=== PATIENT | female | born 1980 | race Asian ===

== ENCOUNTER → 2019-05-18 | Outpatient (CLI) | payer BC ==
[2019-05-18 08:50] LABS: HEMATOCRIT 41.4 % (36.0-47.0); HEMOGLOBIN 13.9 g/dl (12.0-15.5); MEAN CORPUSCULAR HGB CONC 33.6 g/dl (32.0-36.5); MEAN CORPUSCULAR VOLUME 89.2 fl (80.0-96.0); PLATELET COUNT, AUTOMATED 224 10^3/uL (150-450); RED BLOOD COUNT 4.64 10^6/uL (4.00-5.40); WHITE BLOOD COUNT 6.8 10^3/uL (4.0-10.0)
[2019-05-18 09:17] LABS: ALBUMIN 3.9 GM/DL (3.2-5.2); ALT/SGPT 29 U/L (12-78); BILIRUBIN,TOTAL 0.5 MG/DL (0.2-1.0); BLOOD UREA NITROGEN 13 MG/DL (7-18); CALCIUM LEVEL 9.1 MG/DL (8.5-10.1); CARBON DIOXIDE LEVEL 29 MEQ/L (21-32); CHLORIDE LEVEL 108 MEQ/L (98-107); CHOLESTEROL LEVEL 234 MG/DL (<200); CHOLESTEROL RISK RATIO 3.714 (<5); GLOMERULAR FILTRATION RATE > 60.0 (>60); GLUCOSE, FASTING 82 MG/DL (70-100); HDL CHOLESTEROL 63 MG/DL (>40); LDL CHOLESTEROL 144 MG/DL (<100); NON-HDL-C 171 MG/DL; POTASSIUM SERUM 4.4 MEQ/L (3.5-5.1); RHEUMATOID FACTOR QUANT < 10.0 IU/ML (<15.0); SODIUM LEVEL 141 MEQ/L (136-145); TOTAL PROTEIN 7.5 GM/DL (6.4-8.2); TRIGLYCERIDES LEVEL 136 MG/DL (<150)
[2019-05-18 09:31] LABS: ERYTHROCYTE SEDIMENTATION RATE 22 mm/hr (0-20)
[2019-05-18 10:21] LABS: HEMOGLOBIN A1c 4.9 %
[2019-05-18 11:19] LABS: CHLAMYDIA DNA AMPLIFICATION NEGATIVE (NEGATIVE); GC DNA AMPLIFICATION NEGATIVE (NEGATIVE)
[2019-05-20 00:08] LABS: ANTI DOUBLE STRAND-DNA AB 8 IU/mL (0-9); ANTINUCLEAR ANTIBODIES DIRECT Positive (Negative); RNP ANTIBODIES 1.2 AI (0.0-0.9); SJOGREN'S ANTI SS-A <0.2 AI (0.0-0.9); SJOGREN'S ANTI SS-B <0.2 AI (0.0-0.9); SMITH ANTIBODIES <0.2 AI (0.0-0.9); TISSUE TRANSGLUTAMINASE IgA <2 U/mL (0-3)
[2019-05-26 06:40] LABS: HIV-1 RNA by PCR <20 copies/mL (NORMAL)
== END ==
LOC: M LAB 07:48
PROVIDERS: ATTEND Internal Medicine
DX: Z00.01 Encounter for general adult medical examination with abnormal findings (principal)

== ENCOUNTER → 2019-08-16 | Outpatient (CLI) | payer BC ==
--- NOTE | 2019-08-16 07:42 | PFTRPT ---
Site: [facility], [address] [place] [address], [id number] ID: [id number] Name: ROCKY SANTOS Visit Date: 08/16/2019 Second ID: [id number] Referring Doctor: Handy Bryson PA-C Reviewing Doctor: Jamie Garner MD Night Shift Supervisor: Angie NOLEN RRT Age: 38 : 1980 Sex: Female Race: <Unspecified> Height: 63.75 Inches Weight: 149.00 Lbs BSA: 1.72 Order IDs: [id number] Requested Test(s): <RESP-PFT.DLCO> Diagnosis: M34.1 test meet the ATS standards for acceptability and repeatability. Pt was given four puffs of albuterol for postbronchodilator. Review Status: Not Reviewed Pre-Bronch Post-Bronch Pred Actual %Pred Actual %Chng SPIROMETRY FVC (L) 3.67 3.39 92 3.42 FEV1 (L) 2.99 2.65 88 2.84 7 FEV1/FVC (%) 82 78 95 83 6 FEF 25% (L/sec) 5.43 5.03 92 5.66 12 FEF 50% (L/sec) 4.21 3.42 81 3.66 6 FEF 75% (L/sec) 1.67 0.88 52 1.47 67 FEF 25-75% (L/sec) 3.12 2.38 76 3.03 27 FEF Max (L/sec) 6.93 5.15 74 6.02 16 FIVC (L) 3.40 3.39 FIF 50% (L/sec) 3.82 5.06 132 4.46 -11 FIF Max (L/sec) 5.12 4.75 -7 MVV (L/min) 102 81 79 Expiratory Time (sec) 6.86 6.63 -3 Back Extrap Vol (L) 0.08 0.10 24 Time To FEFmax (sec) 0.112 0.093 -17 LUNG VOLUMES SVC (L) 3.45 3.30 95 IC (L) 2.25 2.42 107 ERV (L) 1.20 0.89 73 TGV (L) 2.77 2.63 95 RV (Pleth) (L) 1.57 1.75 111 TLC (Pleth) (L) 5.02 5.05 100 RV/TLC (Pleth) (%) 31 35 111 DIFFUSION DLCOunc (ml/min/mmHg) 23.75 24.77 104 DLCOcor (ml/min/mmHg) 23.75 25.24 106 DL/VA (ml/min/mmHg/L) 4.73 5.53 116 VA (L) 5.02 4.56 90 BHT (sec) 9.66 IVC (L) 3.22 TLC (SB) (L) 4.71 AIRWAYS RESISTANCE Raw (cmH2O/L/s) 1.86 0.81 43 Gaw (L/s/cmH2O) 1.03 1.24 120 sRaw (cmH2O*s) 4.76 2.18 45 sGaw (1/cmH2O*s) 0.20 0.46 231 BLOOD GASES Hgb (gm/dL) 12.8
== END ==
LOC: M CARPUL 07:00
PROVIDERS: ATTEND Physician Assistant
DX: M34.1 CR(E)ST syndrome (principal); R06.02 Shortness of breath

== ENCOUNTER 2019-11-26 07:02 | Day surgery (SDC) | payer BC ==
[~2019-11-26] VITALS: Ht 162.6 cm; Wt 68.0 kg
[~2019-11-26 07:02] MED LIST: 5-HT1CAP PO; CULTCAP2 PO; ESCI5SOL3 PO; GABA-845 PO; HM A10TA PO; NS 1,000 ML IV ONE; VITA500079 PO; VITABCTA PO
[2019-11-26] MEDS ORDERED: LIDOCAINE 2% INJ 100 MG/5 ML SDV (FOR ANES.) As Ordered ONE (07:58)
[2019-11-26] MEDS ORDERED: propofoL 500 MG/50 ML VIAL As Ordered ONE (07:58)
--- NOTE | 2019-11-26 08:19 | ROOR ---
Patient Name: Laurita Alvarez Procedure Date: 11/26/2019 7:57 AM Date of : 1980 Age: 39 Room: [facility] Gender: Female Note Status: Finalized Procedure: Colonoscopy Indications: Generalized abdominal pain, Change in bowel habits, Constipation Providers: Jason GARCIA MD Referring MD: Angela WEISS MD Requesting Provider: Medicines: Monitored Anesthesia Care Complications: No immediate complications. Procedure: Pre-Anesthesia Assessment: - The heart rate, respiratory rate, oxygen saturations, blood pressure, adequacy of pulmonary ventilation, and response to care were monitored throughout the procedure. The Colonoscope was introduced through the anus and advanced to 10 cm into the ileum. The colonoscopy was performed without difficulty. The patient tolerated the procedure well. The quality of the bowel preparation was good. Findings: The perianal and digital rectal examinations were normal. There was evidence of a prior functional end-to-end ileo-colonic anastomosis at the hepatic flexure. This was patent and was characterized by healthy appearing mucosa. The anastomosis was traversed. No other significant abnormalities were identified in a careful examination of the remainder of the colon. The italo-terminal ileum appeared normal. Small Internal Hemorrhoids. Impression: - Patent functional end-to-end ileo-colonic anastomosis, characterized by healthy appearing mucosa. - The colon is otherwise normal. - The examined portion of the ileum was normal. - Small Internal Hemorrhoids. - No specimens collected. Recommendation: - Use fiber, for example Citrucel, Fibercon, Konsyl or Metamucil. - Continue present medications. - Return to referring physician as previously scheduled. Jason Garcia MD Jason GARCIA MD 11/26/2019 8:18:39 AM Electronically signed by Jason GARCIA MD Number of Addenda: 0 Note Initiated On: 11/26/2019 7:57 AM Estimated Blood Loss: Estimated blood loss: none.
[2019-11-26 08:50] VITALS: BP 103/64
== END 2019-11-26 08:50 | disposition home or self-care (01) ==
LOC: M OPP 07:02
PROVIDERS: ATTEND Internal Medicine Gastroenterology
DX: K64.8 Other hemorrhoids (principal); Z98.0 Intestinal bypass and anastomosis status; R10.84 Generalized abdominal pain; R19.4 Change in bowel habit; Z79.899 Other long term (current) drug therapy; Z88.0 Allergy status to penicillin; Z88.8 Allergy status to other drugs, medicaments and biological substances; Z91.018 Allergy to other foods; Z80.0 Family history of malignant neoplasm of digestive organs

== ENCOUNTER → 2020-04-25 | Outpatient (CLI) | payer BC ==
[~2020-04-25] MED LIST changes: -NS 1,000 ML IV ONE
--- NOTE | 2020-04-25 23:13 | ECGEPIP ---
[facility] Test Date: 2020-04-25 Pat Name: ROCKY SANTOS Department: Room: - Gender: Female Information Technology Associate: [place] : 1980 Requested By: Jose Luis San Order Number: [id number] Reading MD: Jason Rawls Measurements Intervals [place] Rate: 65 P: 68 MN: 165 QRS: 40 QRSD: 101 T: 9 QT: 408 QTc: 425 Interpretive Statements SINUS RHYTHM INCOMPLETE RIGHT BUNDLE BRANCH BLOCK No prior ECG available for comparison at the time of interpretation. Electronically Signed on 04-25-2020 23:13:08 EDT by Jason Rawls
== END ==
LOC: M EKG 13:49
PROVIDERS: ATTEND Internal Medicine
DX: M32.9 Systemic lupus erythematosus, unspecified (principal); Z79.899 Other long term (current) drug therapy

== ENCOUNTER → 2020-06-08 | Outpatient (CLI) | payer BC ==
[2020-06-08 12:36] LABS: BASO % 0.5 % (0.0-1.0); EOS # 0.1 10^3/uL (0.0-0.5); EOS % 1.6 % (0.0-3.0); HEMATOCRIT 39.6 % (36.0-47.0); HEMOGLOBIN 13.4 g/dl (12.0-15.5); LYMPH # 1.9 10^3/uL (1.5-5.0); LYMPH % 22.9 % (24.0-44.0); MEAN CORPUSCULAR HEMOGLOBIN 30.2 pg (27.0-33.0); MEAN CORPUSCULAR HGB CONC 33.8 g/dl (32.0-36.5); MEAN CORPUSCULAR VOLUME 89.2 fl (80.0-96.0); MONO # 0.5 10^3/uL (0.0-0.8); MONO % 6.5 % (0.0-5.0); NEUTROPHILS # 5.6 10^3/uL (1.5-8.5); NEUTROPHILS % 68.1 % (36.0-66.0); PLATELET COUNT, AUTOMATED 222 10^3/uL (150-450); RED BLOOD COUNT 4.44 10^6/uL (4.00-5.40); WHITE BLOOD COUNT 8.3 10^3/uL (4.0-10.0)
[2020-06-08 12:39] LABS: APPEARANCE, URINE CLEAR (CLEAR); BACTERIA, URINE AUTO 1+ (NEGATIVE); BILIRUBIN, URINE AUTO NEGATIVE (NEGATIVE); BLOOD, URINE BLOOD NEGATIVE (NEGATIVE); COLOR, URINE COLORLESS (YELLOW); GLUCOSE, URINE (UA) AUTO NEGATIVE (NEGATIVE); KETONE, URINE AUTO NEGATIVE (NEGATIVE); LEUKOCYTE ESTERASE, URINE AUTO NEGATIVE (NEGATIVE); NITRITE, URINE AUTO NEGATIVE (NEGATIVE); PROTEIN, URINE AUTO NEGATIVE (NEGATIVE); RBC, URINE AUTO 1 /HPF (0-3); SPECIFIC GRAVITY URINE AUTO 1.002 (1.002-1.035); SQUAMOUS EPITHELIAL CELL UR AU 1 /HPF (0-6); UROBILINOGEN, URINE AUTO 0.2 mg/dL (0.0-2.0); WBC, URINE AUTO 1 /HPF (0-3)
[2020-06-08 13:05] LABS: ALBUMIN 3.7 GM/DL (3.2-5.2); ALT/SGPT 26 U/L (12-78); BILIRUBIN,TOTAL 0.3 MG/DL (0.2-1.0); BLOOD UREA NITROGEN 12 MG/DL (7-18); CALCIUM LEVEL 9.2 MG/DL (8.5-10.1); CARBON DIOXIDE LEVEL 30 MEQ/L (21-32); CHLORIDE LEVEL 104 MEQ/L (98-107); CREATININE FOR GFR 0.73 MG/DL (0.55-1.30); GLOMERULAR FILTRATION RATE > 60.0 (>58); GLUCOSE, FASTING 81 MG/DL (70-100); POTASSIUM SERUM 3.9 MEQ/L (3.5-5.1); SODIUM LEVEL 140 MEQ/L (136-145); TOTAL PROTEIN 7.4 GM/DL (6.4-8.2); URIC ACID 4.8 MG/DL (2.6-6.0)
[2020-06-08 13:08] LABS: CREATININE,RANDOM URINE < 13.0 MG/DL; TOTAL PROTEIN,RANDOM URINE 6.2 MG/DL (0.0-12.0)
[2020-06-10 01:07] LABS: BETA-2 GLYCOPROTEIN I ABY IGA <9 (0-25); BETA-2 GLYCOPROTEIN I ABY IGG <9 (0-20); BETA-2 GLYCOPROTEIN I ABY IGM <9 (0-32); CARDIOLIPIN IGA ANTIBODY <9 APL U/mL (0-11); CARDIOLIPIN IGG ANTIBODY <9 GPL U/mL (0-14); CARDIOLIPIN IGM ANTIBODY 26 MPL U/mL (0-12); SSA SJOGRENS A <0.2 AI (0.0-0.9); SSB SJOGRENS B <0.2 AI (0.0-0.9)
[2020-06-20 11:57] LABS: DRVV SCREEN 35.4 SEC
[2020-06-20 12:07] LABS: PTT LUPUS TYPE ANTICOAG SCREEN 0.9 (0-1.2)
== END ==
LOC: M LAB 11:56
PROVIDERS: ATTEND Internal Medicine
DX: M32.9 Systemic lupus erythematosus, unspecified (principal)

== ENCOUNTER → 2020-07-05 | Outpatient (CLI) | payer BC ==
[2020-07-05 11:20] LABS: AMORPHOUS SEDIMENT SMALL (NEGATIVE); APPEARANCE, URINE CLEAR (CLEAR); BACTERIA, URINE AUTO 2+ (NEGATIVE); BASO % 0.4 % (0.0-1.0); BILIRUBIN, URINE AUTO NEGATIVE (NEGATIVE); BLOOD, URINE BLOOD NEGATIVE (NEGATIVE); COLOR, URINE STRAW (YELLOW); EOS # 0.1 10^3/uL (0.0-0.5); EOS % 1.7 % (0.0-3.0); GLUCOSE, URINE (UA) AUTO NEGATIVE (NEGATIVE); HEMATOCRIT 39.9 % (36.0-47.0); HEMOGLOBIN 13.5 g/dl (12.0-15.5); KETONE, URINE AUTO NEGATIVE (NEGATIVE); LEUKOCYTE ESTERASE, URINE AUTO 1+ (NEGATIVE); LYMPH # 2.1 10^3/uL (1.5-5.0); LYMPH % 28.5 % (24.0-44.0); MEAN CORPUSCULAR HEMOGLOBIN 30.1 pg (27.0-33.0); MEAN CORPUSCULAR HGB CONC 33.8 g/dl (32.0-36.5); MEAN CORPUSCULAR VOLUME 89.1 fl (80.0-96.0); MONO # 0.6 10^3/uL (0.0-0.8); MONO % 7.7 % (0.0-5.0); NEUTROPHILS # 4.6 10^3/uL (1.5-8.5); NEUTROPHILS % 61.3 % (36.0-66.0); NITRITE, URINE AUTO NEGATIVE (NEGATIVE); PLATELET COUNT, AUTOMATED 240 10^3/uL (150-450); PROTEIN, URINE AUTO NEGATIVE (NEGATIVE); RBC, URINE AUTO 2 /HPF (0-3); RED BLOOD COUNT 4.48 10^6/uL (4.00-5.40); SPECIFIC GRAVITY URINE AUTO 1.003 (1.002-1.035); SQUAMOUS EPITHELIAL CELL UR AU 2 /HPF (0-6); UROBILINOGEN, URINE AUTO 0.2 mg/dL (0.0-2.0); WBC, URINE AUTO 1 /HPF (0-3); WHITE BLOOD COUNT 7.5 10^3/uL (4.0-10.0)
[2020-07-05 11:36] LABS: INR 0.86; PROTHROMBIN TIME 11.9 SECONDS (12.5-14.3)
[2020-07-05 11:37] LABS: PARTIAL THROMBOPLASTIN TIME 28.8 SECONDS (24.2-38.5)
== END ==
LOC: M LAB 10:24
PROVIDERS: ATTEND Podiatrist
DX: M21.619 Bunion of unspecified foot (principal)

== ENCOUNTER → 2020-10-10 | Outpatient (CLI) | payer BC ==
[2020-10-10 15:23] LABS: APPEARANCE, URINE CLEAR (CLEAR); BACTERIA, URINE AUTO 2+ (NEGATIVE); BILIRUBIN, URINE AUTO NEGATIVE (NEGATIVE); BLOOD, URINE BLOOD NEGATIVE (NEGATIVE); COLOR, URINE COLORLESS (YELLOW); GLUCOSE, URINE (UA) AUTO NEGATIVE (NEGATIVE); KETONE, URINE AUTO NEGATIVE (NEGATIVE); LEUKOCYTE ESTERASE, URINE AUTO NEGATIVE (NEGATIVE); NITRITE, URINE AUTO NEGATIVE (NEGATIVE); PROTEIN, URINE AUTO NEGATIVE (NEGATIVE); RBC, URINE AUTO 1 /HPF (0-3); SPECIFIC GRAVITY URINE AUTO 1.002 (1.002-1.035); SQUAMOUS EPITHELIAL CELL UR AU 2 /HPF (0-6); UROBILINOGEN, URINE AUTO 0.2 mg/dL (0.0-2.0); WBC, URINE AUTO 0 /HPF (0-3)
[2020-10-10 15:24] LABS: BASO % 0.5 % (0.0-1.0); EOS # 0.1 10^3/uL (0.0-0.5); EOS % 1.6 % (0.0-3.0); HEMATOCRIT 39.8 % (36.0-47.0); LYMPH # 1.9 10^3/uL (1.5-5.0); LYMPH % 24.7 % (24.0-44.0); MEAN CORPUSCULAR HEMOGLOBIN 29.3 pg (27.0-33.0); MEAN CORPUSCULAR HGB CONC 32.7 g/dl (32.0-36.5); MEAN CORPUSCULAR VOLUME 89.8 fl (80.0-96.0); MONO # 0.6 10^3/uL (0.0-0.8); MONO % 8.1 % (0.0-5.0); NEUTROPHILS # 4.9 10^3/uL (1.5-8.5); NEUTROPHILS % 64.4 % (36.0-66.0); PLATELET COUNT, AUTOMATED 260 10^3/uL (150-450); RED BLOOD COUNT 4.43 10^6/uL (4.00-5.40); WHITE BLOOD COUNT 7.6 10^3/uL (4.0-10.0)
[2020-10-10 15:48] LABS: TOTAL PROTEIN,RANDOM URINE < 5.0 MG/DL (0.0-12.0)
[2020-10-10 16:02] LABS: ALBUMIN 3.8 GM/DL (3.2-5.2); ALT/SGPT 23 U/L (12-78); BILIRUBIN,TOTAL 0.3 MG/DL (0.2-1.0); BLOOD UREA NITROGEN 10 MG/DL (7-18); CALCIUM LEVEL 9.2 MG/DL (8.5-10.1); CARBON DIOXIDE LEVEL 30 MEQ/L (21-32); CHLORIDE LEVEL 104 MEQ/L (98-107); FREE T4 0.86 NG/DL (0.76-1.46); GLOMERULAR FILTRATION RATE > 60.0 (>58); GLUCOSE, FASTING 80 MG/DL (70-100); POTASSIUM SERUM 3.9 MEQ/L (3.5-5.1); SODIUM LEVEL 139 MEQ/L (136-145); TOTAL PROTEIN 7.6 GM/DL (6.4-8.2)
== END ==
LOC: M LAB 14:33
PROVIDERS: ATTEND Internal Medicine
DX: R76.8 Other specified abnormal immunological findings in serum (principal)

== ENCOUNTER → 2020-10-19 | Outpatient (REF) | payer BC | LOC: M LAB REF 16:42 | PROVIDERS: ATTEND Physician Assistant | DX: M32.9 Systemic lupus erythematosus, unspecified (principal) ==

== ENCOUNTER → 2020-10-31 | Outpatient (CLI) | payer BC ==
--- NOTE | 2020-10-31 09:11 | REP ---
INDICATION: ABN FINDINGS ON IMAGING COMPARISON: None. TECHNIQUE: Real time walter scale ultrasound examination using curved array transducer. FINDINGS: Liver demonstrates few scattered hypoechoic mass lesions including 4.9 cm lesion in the left lobe and 2.2 cm lesion in the right lobe which cannot be further characterized by ultrasound. Visualized portions of the pancreas are unremarkable but limited due to interposed bowel gas. The gallbladder includes tumefactive sludge without wall thickening or pericholecystic fluid. No biliary ductal dilatation is appreciated and the common bile duct measures 3.4 mm diameter. Right kidney is normal in reniform shape without hydronephrosis and measures 9.6 x 5.9 x 4.0 cm cm. No ascites in the visualized right upper quadrant. IMPRESSION: 1. Multiple hypoechoic mass lesions within the liver cannot be further characterized by ultrasound. Consider pre and postcontrast CT of the abdomen using hepatic mass protocol. <Electronically signed by Molina Oliver > 10/31/20 [id number]
== END ==
LOC: M RAD 08:17
PROVIDERS: ATTEND Internal Medicine Gastroenterology
DX: D37.6 Neoplasm of uncertain behavior of liver, gallbladder and bile ducts (principal); R93.3 Abnormal findings on diagnostic imaging of other parts of digestive tract

== ENCOUNTER → 2020-11-30 | Outpatient (CLI) | payer BC ==
[~2020-11-30] MED LIST changes: +PROHANCE 279.3MG/ML 15ML VIAL As Ordered ONE
--- NOTE | 2020-11-30 19:17 | REP ---
INDICATION: NEOPLASM OF UNSPECIFIED BEHAVIOR OF DIGESTIVE SYSTEM. Multiple hepatic lesions. COMPARISON: Comparison MRI study June 08, 2019. Comparison sonography October 31, 2020 and May 25, 2019.. TECHNIQUE: Axial and coronal T1 and T2 weighted sequences include spin echo, fast spin echo, in and out of phase, diffusion weighted scans, and dynamically acquired sequential postcontrast images. 13 mL of intravenous ProHance is administered. FINDINGS: Multiple right and left lobe hepatic mass lesions are again seen. These are more readily visible due to differences in sequences acquired including the diffusion-weighted scans. There are 8 separately identifiable liver lesions. I do not believe there are more lesions. The smaller lesions are visible in retrospect. The lesions do not appear to have grown in size or changed in characteristics. There are 2 lesions identified which have signal intensity and contrast enhancement characteristics consistent with benign hemangiomas. These are unchanged. Two largest lesions are a right lobe lesion anteriorly 3.8 cm in greatest diameter and a left lobe lesion measuring 3.8 cm in diameter. On previous T2 weighted scans these lesions measured 4.3 and 4.1 cm respectively. These are felt to be unchanged. These 2 lesions display a central irregular T2 hyperintense central scar which displays delayed contrast enhancement. These lesions do not appear to be encapsulated. There are 1 or 2 tiny T2 hyperintense cysts. The other lesions are smaller and displace signal intensity characteristics similar to the 2 larger lesions. These are felt to be compatible with focal nodular hyperplasia and appear to be unchanged. There is evidence of cholelithiasis. No pancreatic or splenic lesion is seen. Normal adrenal glands are seen. No renal abnormality is observed. There is no evidence of upper abdominal lymphadenopathy. No pleural effusion or ascites is evident. IMPRESSION: Multiple stable liver mass lesions measuring up to 3.8 cm in greatest diameter. There are 2 which appear to be consistent with benign hemangiomas. The rest are felt to be most compatible with focal nodular hyperplasia. 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 <Electronically signed by Hemanth Cobb > 11/30/201912
== END ==
LOC: M RAD 16:41
PROVIDERS: ATTEND Internal Medicine Gastroenterology
DX: D49.0 Neoplasm of unspecified behavior of digestive system (principal); R93.3 Abnormal findings on diagnostic imaging of other parts of digestive tract
CPT/HCPCS: 74183; A9576

== ENCOUNTER → 2021-01-04 | Outpatient (CLI) | payer BC ==
[~2021-01-04] MED LIST changes: -PROHANCE 279.3MG/ML 15ML VIAL As Ordered ONE
[2021-01-04 16:44] LABS: ALBUMIN 4.1 GM/DL (3.2-5.2); ALT/SGPT 29 U/L (12-78); BILIRUBIN,DIRECT < 0.1 MG/DL (0.0-0.2); BILIRUBIN,TOTAL 0.3 MG/DL (0.2-1.0); TOTAL PROTEIN 7.9 GM/DL (6.4-8.2)
== END ==
LOC: M LAB 15:44
PROVIDERS: ATTEND Internal Medicine Gastroenterology
DX: D37.6 Neoplasm of uncertain behavior of liver, gallbladder and bile ducts (principal)